=== PATIENT | female | born 2000 | race Caucasian/White ===

== ENCOUNTER 2024-05-25 14:17 | Emergency (ER) | payer MEDICARE, SELFPAY ==
[2024-05-25 14:20] VITALS: BP 114/77; PULSE 106; RESP 18; TEMP 36.7; O2SAT 96
--- NOTE | 2024-05-25 14:35 | EDNOTE_ITS ---
ED Psych RME/HPI General Chief Complaint: Psychiatric Symptoms Stated Complaint: MENTAL HEALTH EVAL Time Seen by Provider: 05/25/24 14:23 Arrival date/time: 05/25/24 14:17 RME / HPI RME / HPI Narrative: 24-year-old female patient with mental health history BIBA for reported SI. When asked why she is at the hospital, patient states because I ran away . Can I call my mom? No complaints. Patient resides at a correction. Has been seen here multiple times in the past for behavioral disturbance. Related Data Home Medications ?Medication ?Instructions ?Recorded ?Confirmed cholecalciferol (vitamin D3) 25 25 mcg PO QDAY 07/01/22 03/14/23 mcg (1,000 unit) tablet (Vitamin D3) docusate sodium 250 mg capsule 250 mg PO BID 07/01/22 03/14/23 lorazepam 1 mg tablet 1 mg PO QID 07/01/22 03/14/23 melatonin 10 mg tablet 10 mg PO HS 07/01/22 03/14/23 multivitamin 2 tab PO QDAY 07/01/22 03/14/23 norethindrone-e.estradiol 1 tab PO QDAY 07/01/22 03/14/23 triphasic 0.5 mg/0.75 mg/1 mg-35 mcg tablet (Alyacen (28)) oxcarbazepine 300 mg tablet 300 mg PO BID 07/01/22 03/14/23 quetiapine 400 mg tablet 400 mg PO BID 07/01/22 03/14/23 Allergies Allergy/AdvReac Type Severity Reaction Status Date / Time No Known Allergies Allergy Verified 04/26/21 14:54 Review of Systems Review of Systems Systems Reviewed: All systems reviewed, normal except as documented Narrative Review of Systems: GEN: No fever, no chills, no weight loss EYES: No discharge, no visual changes, no pain HEENT: No ear pain, no congestion, no sore throat PULM: No shortness of breath, no cough, no congestion CV: No chest pain, no dyspnea on exertion, no palpitations GI: No nausea, no vomiting, no diarrhea, no pain, no constipation : No frequency, no urgency and no dysuria MUSC/SKEL: No joint pain, no back pain SKIN: No rash PSYCH: No hallucinations, no depression HEME/LYMPH: No easy bleeding or bruising tendencies NEURO: No weakness, no headache Past Medical History Past Medical History NEUROLOGIC: Positive Head Trauma and Traumatic Brain Injury; Negative Cerebrovascular Accident or Alzheimer's Disease CARDIAC: Negative Cardiac Disorders, Myocardial Infarction or Congestive Heart Failure RESPIRATORY: Negative Chronic Obstructive Pulmonary Disease (COPD) or Emphysema GASTROINTESTINAL: Negative Liver Cancer or Pancreatic Cancer GENITOURINARY: Negative Renal Disease ENT: Positive Head Trauma; Negative Cataracts ENDOCRINE: Negative Diabetes Mellitus Type 1 or Diabetes Mellitus Type 2 PSYCHO/SOCIAL: Positive Psychiatric Problems, Anxiety, Behavior Problems and Attention Deficit Hyperactivity Disorder OTHER HISTORY: Positive Developmental Delay Family History FAMILY HISTORY: Positive Family Psychiatric Problems; Negative Family Respiratory Disorders, Family Cardiac Disorders or Family Gastrointestinal Problems Social History SMOKING STATUS: Never smoker ED Exam Narrative Physical exam: GENERAL APPEARANCE: alert and oriented x 4, well-developed, well-nourished, no acute distress VITALS: All vitals were reviewed and the pulse ox is 98% on room air, which is normal according to my interpretation. HEENT: Normocephalic, atraumatic; pupils equal, round, reactive to light; EOMI; mucous membranes pink, moist; oropharynx clear NECK: Supple LUNGS: CTABL; no wheezes, no rales, no rhonchi HEART: Regular rate, regular rhythm; normal S1, S2; no murmurs ABDOMEN: non distended; normal BS; soft, no tenderness, no guarding, no rebound; no masses, no organomegaly, no hernia BACK: no CVA tenderness EXTREMITIES: atraumatic; no edema NEUROLOGIC: awake; alert and oriented x4; cranial nerves II-XII grossly intact; no focal sensory or motor deficits PSYCHIATRIC: appropriate mood and affect SKIN: warm, dry, normal color; no rashes Course Course Course Narrative: Medically cleared for psychiatric evaluation. 1542: CRISIS cleared the patient for discharge. Safety plan in place. Quality Measures none Vital Signs Vital signs: Vital Signs Temperature 98.1 F 05/25/24 14:20 Pulse Rate 106 H 05/25/24 14:20 Respiratory Rate 18 05/25/24 14:20 Blood Pressure 114/77 05/25/24 14:20 Pulse Oximetry (%) 96 05/25/24 14:20 Oxygen Delivery Method Room Air 05/25/24 14:20 Psych MDM Narrative MDM Narrative:: ICarolyn am scribing for and in the presence of Dr. Almanza. Patient data External records reviewed:: [facility] previous records (Reviewed last ED visit dated 02/12/24 ,discharged with the following: Anger reaction) and EMS form Clinical information provided by:: patient and EMS Social determinants that could affect healthcare access:: none Patient has the following chronic illnesses:: behavioral disorder How is presenting disease/condition affected by chronic disease/condition?: exacerbated by Evaluation data The following diagnostics were reviewed and interpreted by me:: other (specify) (none) Lab and/or radiology exams considered but not ordered:: none Interpretation Summary: n/a Medications / Prescriptions Medications or Prescriptions considered but not ordered:: none Medication administrations:: see above if any Consultations Consultation(s) initiated? (list below): No Diagnosis Psych Differential Diagnosis: acute psychosis, chronic schizophrenia, suicidal ideation and acute anxiety Most likely diagnosis given after review of the tests above:: Behavioral problem Admission Indicated Admission indicated?: not indicated Admission Request Was there a request for admission?: No Disposition Plan Disposition Plan: Discharge Discharge Attestation Discharge Attestation: The patient and all family members were given an opportunity to ask questions and understood the discharge instructions. Discharge instructions specifically effects, indications for sooner follow up or return to the emergency department, and the expected course of current diagnosis. Patient condition: Stable Discharge Plan Plan Patient Disposition: HOME (Self Care) Disposition Comment: [facility] Prescriptions/Referrals Prescriptions/Med Rec: No Action multivitamin Tablet 2 tab PO QDAY Alyacen (28) 0.5/0.75/1 mg- 35 mcg Tablet 1 tab PO QDAY oxcarbazepine 300 mg tablet 300 mg PO BID lorazepam 1 mg tablet 1 mg PO QID docusate sodium 250 mg capsule 250 mg PO BID quetiapine 400 mg tablet 400 mg PO BID cholecalciferol (vitamin D3) [Vitamin D3] 25 mcg (1,000 unit) Tablet 25 mcg PO QDAY melatonin 10 mg Tablet 10 mg PO HS Referrals: No Primary/Family,Physician [Primary Care Provider] - In 1 week Problem List Clinical Impression: Behavioral problem Patient/Caregiver Discharge Instructions Education Materials: ED Symptoms With Uncertain Cause Print Language: Citizen Of [place] Stand Alone Forms: [facility] Award Info., Patient Portal Info Letter
[2024-05-25 14:43] VITALS: PULSE 108; RESP 19; BMI 30.9
--- NOTE | 2024-05-25 15:42 | PC.CC ---
Patient is a 24 year-old female who presents for a mental health evaluation. Sonido and RALEIGH Montalvo made [id number] contact with patient to complete assessment. ASW?s introduced self, role, and reason for assessment to patient. ASW disclosed limits of confidentiality as well. Patient appeared alert and oriented to self, place, and situation. Patient presents as cognitively delayed is presenting with childlike behaviors, similar to a child?s intellectual ability. She is having difficulty understanding social cues. Patient is a [facility] client her worker is Trinity Grewal. Patient denied suicidal ideations, visual and auditory hallucinations. Patient reports homicidal ideations against senior care staff by stabbing them. Patient stated, ?All of them.? ASW explored where she would get the knife and patient reports she does not have access as they are all locked. Patient denied past suicide attempts. Collateral information from Joy Mcconnell [facility]-Longterm Locate Technician, she reports the patient left the residence and began exposing herself to others out in the community. Patient received everyday support from a end finder twisting department 8 hours and WRAP services an additional 8 hours. ASW informed Joy that patient made homicidal statements of her wanting to harm senior care staff with a knife. Joy reports she will make her staff aware; however, all medications and anything that can be used as a weapon is locked. The following information is from the front end manager, Marion Mcconnell , she reports that patient has referrals to a psychiatrist. Patient receives intense in-home supportive services she is a 2 to 1 for 8 hours of the day. She reports that she left the home today and was exposing herself to others out in the community. ASW made Marion aware that the patient stated she wants to kill senior care staff by stabbing them. Marion reports the patient does not have access to any sharps, or anything that can be used as a weapon and all medications are locked. [facility] staff reports that when patient is ready for discharge they will presents themselves to the hospital to pick her up. Upon clinical consultation with Chari BARCENAS the patient does not meet criteria for 5150-hold and safety plan with patient and senior care staff. Patient stated, ?I want to go home.? Patient reported she will remain at home and will not leave the senior care. Safety plan is for patient to return back to the senior care with staff. Marion will make senior care staff aware that patient made homicidal comments. Scarlett will ensure that all sharps and medications are locked. [facility] staff to provide extra supervision for the next 72 hours. Patient to continue to receive WRAP services as well as from her end finder twisting department. The patient to follow-up with the outpatient psychiatry appointment when it is established.
[2024-05-25 16:05] VITALS: BP 109/75; PULSE 90; RESP 16; TEMP 36.8; O2SAT 98
== END 2024-05-25 16:30 | disposition home or self-care (01) ==
PROVIDERS: Emergency Provider Emergency Medicine
DX: Z00.8 Encounter for other general examination (principal); R46.89 Other symptoms and signs involving appearance and behavior
CPT/HCPCS: 90839; 96127; 99283

== ENCOUNTER 2024-05-29 15:48 | Emergency (ER) | payer MEDICARE, SELFPAY ==
--- NOTE | 2024-05-29 16:32 | PC.NURSE ---
Pt assisted to the bathroom at this time.
[2024-05-29 17:04] VITALS: BP 108/75; PULSE 74; RESP 18; TEMP 37; O2SAT 98
--- NOTE | 2024-05-29 17:15 | PC.NURSE ---
Client assisted to the bathroom again stated she needs to poop
--- NOTE | 2024-05-29 17:27 | PC.NURSE ---
Pt given chips and and juice at this time. Late tray dinner ordered by RALEIGH
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
--- NOTE | 2024-05-29 18:32 | PC.NURSE ---
Patient is eating dinner tray at this time.
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
--- NOTE | 2024-05-29 18:56 | PC.NURSE ---
pt assisted to the bathroom.
[2024-05-29 19:26] VITALS: BP 126/76; PULSE 89; RESP 18; TEMP 36.8; O2SAT 98
[2024-05-29] MEDS: ONDANSETRON ODT 4 MG TABRAP PO (21:08)
[2024-05-29] MEDS: LORazepam 0.5 MG TABLET 2 MG PO (21:08)
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
[2024-05-29] MEDS: DiphenhydrAMINE INJ 50 MG/ML VIAL 25 MG IM (21:24)
[2024-05-29] MEDS: HALOPERIDOL LACT INJ 5 MG/ML VIAL IM (21:24)
[2024-05-29 23:34] LABS: HCG Qualitative,Urine Negative
[2024-05-30] LABS: Alcohol, Urine Negative (Negative); Amphetamine/Methamp Scrn,U Negative (Negative); Barbiturate Screen,Urine Negative (Negative); Benzodiazepines Screen,Urine Negative (Negative); Benzoylecgonine Screen, Ur Negative (Negative); Fentanyl Screen,Urine Negative (Negative); Opiate Screen,Urine Negative (Negative); THC Screen,Urine Negative (Negative)
[2024-05-30 03:46] VITALS: BP 121/80; PULSE 88; RESP 20; TEMP 36.8; O2SAT 99
[2024-05-30 06:06] VITALS: BP 117/82; PULSE 77; RESP 18; TEMP 36.7; O2SAT 99
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
[2024-05-30 08:44] VITALS: BP 137/87; PULSE 83; RESP 16; TEMP 36.3; O2SAT 99
--- NOTE | 2024-05-30 09:21 | PC.NURSE ---
Released one arm restraint per Dr Sorensen.
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
[2024-05-30 11:49] VITALS: BP 118/76; PULSE 90; RESP 18; TEMP 36.9; O2SAT 98
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
[2024-05-30 13:23] VITALS: BMI 34.7
== END 2024-05-30 14:00 | disposition home or self-care (01) ==
PROVIDERS: Emergency Medicine; Emergency Provider Emergency Medicine
DX: Z04.6 Encounter for general psychiatric examination, requested by authority (principal); R45.851 Suicidal ideations; F41.9 Anxiety disorder, unspecified; F90.9 Attention-deficit hyperactivity disorder, unspecified type
CPT/HCPCS: 80307; 80320; 81025; 90839; 96127; 96372; 99285; J1200; J1630; Q0162; A9270; G0480

== ENCOUNTER → 2024-06-15 | Outpatient (CLI) | payer MEDICARE, SELFPAY ==
[2024-06-15 12:52] LABS: Basophils % (Auto) 1 % (0-2.5); Eosinophils % (Auto) 1 % (0-10); Hematocrit 35.6 % (36.0-46.0); Hemoglobin 11.5 g/dL (12.0-16.0); Immature Granulocytes % (Auto) 0 % (0-0); Immature Granulocytes Auto 0.01 Thou/mm3 (0.00-0.00); Lymphocytes # (Auto) 2.5 Thou/mm3 (1.0-4.8); Lymphocytes % (Auto) 38 % (10-50); Mean Corpuscular HGB Conc 32.3 g/dl (31.0-37.0); Mean Corpuscular Hemoglobin 30.3 pg (25.0-35.0); Mean Corpuscular Volume 94 fL (80-100); Monocytes # (Auto) 0.3 Thou/mm3 (0.0-0.8); Monocytes % (Auto) 5 % (0-12); Neutrophils # (Auto) 3.7 Thou/mm3 (1.8-7.7); Neutrophils % (Auto) 56 % (37-80); Nucleated Red Blood Cell % 0 /100 WBC (0); Platelet Count 348 Thou/mm3 (140-440); White Blood Count 6.5 Thou/mm3 (3.6-11.0)
[2024-06-15 13:08] LABS: Alanine Aminotransferase 22 U/L (10-49); Albumin/Globulin Ratio 1.5 (1.2-2.2); Alkaline Phosphatase 100 U/L (46-116); Anion Gap 12 (7-16); Aspartate Amino Transferase 28 U/L (0-34); BUN/Creatinine Ratio 28 Ratio (12-20); Bilirubin,Total 0.2 mg/dL (0.3-1.2); Blood Urea Nitrogen 17 mg/dL (9-23); Calcium 8.7 mg/dL (8.3-10.6); Calcium (Corrected) 8.7 mg/dL (8.5-10.1); Carbon Dioxide 19.8 mMol/L (20.0-31.0); Chloride 105 mMol/L (98-107); Creatinine (Component) 0.6 mg/dL (0.6-1.3); Globulin 2.7 gm/dL (2.3-3.5); Glucose 101 mg/dL (74-106); Osmolality,Calculated 275 (275-295); Potassium 5.1 mMol/L (3.4-5.1); Sodium 137 mMol/L (136-145); Total Protein 6.7 gm/dL (5.7-8.2); eGFR > 60 See Note
== END | disposition home or self-care (01) ==
LOC: SLDO 11:11
PROVIDERS: PCP Family Medicine; Referring Provider Family Medicine; Visit Provider Family Medicine
DX: Z00.00 Encounter for general adult medical examination without abnormal findings (principal); F71 Moderate intellectual disabilities; F63.81 Intermittent explosive disorder
CPT/HCPCS: 36415; 80053; 81001; 85025

== ENCOUNTER 2024-06-26 11:24 | Emergency (ER) | payer MEDICARE, SELFPAY ==
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
[2024-06-26 13:04] VITALS: BP 142/86; PULSE 86; RESP 17; TEMP 36.9; O2SAT 98
[2024-06-26 13:06] LABS: HCG Qualitative,Urine Negative
[2024-06-26 13:14] VITALS: BMI 27.4
[2024-06-26 13:16] LABS: Alcohol, Urine Negative (Negative); Amphetamine/Methamp Scrn,U Negative (Negative); Barbiturate Screen,Urine Negative (Negative); Benzodiazepines Screen,Urine Negative (Negative); Benzoylecgonine Screen, Ur Negative (Negative); Fentanyl Screen,Urine Negative (Negative); Opiate Screen,Urine Negative (Negative); THC Screen,Urine Negative (Negative)
--- NOTE | 2024-06-26 13:24 | PC.NURSE ---
Patient states she is not going back to her facility because she doesn't feel safe there and if they come here to see here or take her back it will be bad. She states she will not go back there. When asked if they are harming her she states no but she doesn't like them and wont go back.
--- NOTE | 2024-06-26 14:28 | PC.NURSE ---
Assisted patient in calling her mom
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
[2024-06-26 15:21] VITALS: BP 128/82; PULSE 82; RESP 18; TEMP 37.1; O2SAT 97
[2024-06-26] MEDS: LORazepam 2 MG/ML VIAL IM (16:10)
[2024-06-26] MEDS: HALOPERIDOL LACT INJ 5 MG/ML VIAL IM (16:20)
[2024-06-26] MEDS: HALOPERIDOL LACT INJ 5 MG/ML VIAL (16:20)
== END 2024-06-26 16:59 | disposition home or self-care (01) ==
LOC: SERX 16:59
PROVIDERS: Emergency Provider Emergency Medicine
DX: Z04.6 Encounter for general psychiatric examination, requested by authority (principal); F23 Brief psychotic disorder
CPT/HCPCS: 80307; 80320; 81025; 90839; 96127; 96372; 99284; J1630; J2060; G0480